=== PATIENT | female | born 1985 | race Caucasian/White ===

== ENCOUNTER 2018-09-01 05:38 | Day surgery (SDC) | payer MEDICAID ==
[2018-09-01 06:42] LABS: ADD MAN DIFF? NO
[2018-09-01 06:53] LABS: BASOPHILS % 0.3 % (0.0-2.0); EOSINOPHILS # 0.1 10^3/ul (0.0-0.5); EOSINOPHILS % 1.3 % (0.0-7.0); HEMATOCRIT 40.2 % (37.0-47.0); HEMOGLOBIN 13.7 g/dl (12.0-16.0); LYMPHOCYTES % 25.6 % (15.0-51.0); MEAN CORPUSCULAR HEMOGLOBIN 31.6 pg (29.0-33.0); MEAN CORPUSCULAR HGB CONC 34.1 g/dl (32.0-37.0); MEAN CORPUSCULAR VOLUME 92.6 fl (82.0-101.0); MEAN PLATELET VOLUME 10.3 fl (7.4-10.4); MONOCYTE # 0.5 10^3/ul (0.3-0.9); MONOCYTES % 6.7 % (0.0-11.0); NEUTROPHIL # 5.1 10^3/ul (1.6-7.5); PLATELET COUNT 338 10^3/UL (140-415); RED BLOOD COUNT 4.34 10^6/ul (4.20-5.40); RED CELL DISTRIBUTION WIDTH 12.2 % (11.5-14.5)
[2018-09-01 06:53] LABS: WHITE BLOOD COUNT 7.7 10^3/ul (4.8-10.8)
[2018-09-01] MEDS ORDERED: FENTAnyl 50 MCG/ML VIAL (07:01)
[2018-09-01] MEDS ORDERED: PROPOFOL 20 ML (07:01)
[2018-09-01] MEDS ORDERED: LIDOCAINE 2% (SDV) 5 ML INJ (07:01)
[2018-09-01] MEDS ORDERED: MIDAZOLAM 1 MG/ML 2 ML INJ (07:01)
[2018-09-01] MEDS ORDERED: CLINDAMYCIN 900 MG/D5W (PMX) 50 ML IVPB (07:01)
[2018-09-01] MEDS ORDERED: ROCURONIUM 50 MG INJ (07:01)
[2018-09-01] MEDS ORDERED: FENTAnyl 50 MCG/ML VIAL IV ×3 (07:30)
[2018-09-01] MEDS ORDERED: ONDANSETRON 4 MG INJ IV (07:30)
[2018-09-01] MEDS ORDERED: MEPERIDINE 25 MG INJ IV (07:30)
[2018-09-01] MEDS ORDERED: OXYCODONE/ACETAMINOPHEN (5/325) TAB PO ×2 (07:30)
[2018-09-01] MEDS ORDERED: METOCLOPRAMIDE 10 MG INJ (07:45)
[2018-09-01] MEDS ORDERED: ONDANSETRON 4 MG INJ (07:45)
[2018-09-01] MEDS ORDERED: FAMOTIDINE 20 MG INJ (07:46)
[2018-09-01] MEDS ORDERED: DEXAMETHASONE 4 MG/ML 5 ML INJ (07:46)
[2018-09-01] MEDS: BUPIVACAINE 0.5%/EPI (SDV) 30 ML INJ (08:22)
[2018-09-01] MEDS ORDERED: GLYCOPYRROLATE 0.4 MG INJ (08:34)
[2018-09-01] MEDS ORDERED: NEOSTIGMINE 3 MG/3 ML SYRINGE (08:34)
[2018-09-01] MEDS: LACTATED RINGER'S 1,000 ML IV (09:36)
== END 2018-09-01 10:26 | disposition home or self-care (01) ==
LOC: SDS 05:38
DX: Z30.2 Encounter for sterilization (principal); Z30.432 Encounter for removal of intrauterine contraceptive device
CPT/HCPCS: 58661; 84703; 85025; 88302; 93005